=== PATIENT | male | born 1955 | race Caucasian/White ===

== ENCOUNTER → 2017-06-26 | Day surgery (SDC) | payer OTHER ==
[~2017-06-26] MED LIST: ASPIRIN81 M2 PO; FLOMAX0.4 M1 PO; FLONASE 0.05% N16 G1; SIMVASTATIN40 MG PO; VITAPULSE PO; [UNRECOGNIZED DRUG - REMARK] PO
--- NOTE | ~2017-06-26 | OR ---
Unit #: [id number] #: [id number] Patient: DANIEL CENTENO [id number] [address] [address] [id number] O MR#: [id number] NAME: DANIEL CENTENO ROOM: Date of Procedure: 06/26/2017 Admission Date: 06/26/2017 Surgeon: Jose Angel Ernandez M.D. : 1955 Attending Physician: Jose Angel Ernandez M.D. OPERATIVE REPORT PREOPERATIVE DIAGNOSIS Colorectal cancer screening in an average-risk patient. PROCEDURES PERFORMED Colonoscopy and biopsy. POSTOPERATIVE DIAGNOSES 1. Single sessile polyp in the proximal ascending colon removed using cold biopsy forceps. 2. Moderate sigmoid and descending colon diverticulosis. 3. Rest of the examination up to cecum and terminal ileum was normal. The quality of the prep was excellent. RECOMMENDATIONS Follow up the results of polyp histology and consider repeat colonoscopy in 5 years. SEDATION USED MAC. DESCRIPTION OF PROCEDURE Following detailed explanation of the potential risks and complications of a colonoscopy, namely perforation, bleeding, and complications related to sedation, the patient was brought to GI lab and laid in the left lateral decubitus position. A digital rectal examination was performed, which was normal. Lubricated tip of the Olympus video colonoscope was inserted through the anus and advanced under direct vision. The scope was advanced past rectosigmoid into descending colon. Multiple medium-sized diverticula were noted in this area. The scope tip was then navigated all the way up to cecum with visualization of the ileocecal valve and the appendiceal orifice. Preparation was excellent with good visualization and photodocumentation was obtained. Last several inches of the terminal ileum were also visualized after intubation of the ileocecal valve and appeared normal. Successive segments of the colonic mucosa were examined upon withdrawal. A single sessile polyp was noted in the proximal ascending colon. This was diminutive and was removed using cold biopsy forceps. No additional polyps were noted. Other than the left-sided diverticula, no additional abnormalities were found. The patient did not have any hemorrhoids at anal verge. The scope was then withdrawn and the patient returned to recovery area. He tolerated the procedure without any postprocedure complications. Unit #: [id number] #: [id number] Patient: DANIEL CENTENO Dictated by... Edwige Benjamin/cristian TD: 06/26/2017 10:24 JOB #: [id number] CC: Uziel Cobian M.D. OPERATIVE REPORT Page 1 of 1 X Jose Angel Ernandez MD X PROCEDURE OPERATIVE NOTE
== END | disposition home or self-care (01) ==
LOC: COPS 06-06 08:00
DX: Z12.11 Encounter for screening for malignant neoplasm of colon (principal); D12.2 Benign neoplasm of ascending colon; K57.30 Diverticulosis of large intestine without perforation or abscess without bleeding; N40.0 Benign prostatic hyperplasia without lower urinary tract symptoms; Z79.82 Long term (current) use of aspirin; Z79.899 Other long term (current) drug therapy; Z98.52 Vasectomy status
CPT/HCPCS: 88305